=== PATIENT | male | born 1960 | race Caucasian/White ===

== ENCOUNTER 2016-12-18 12:29 | Observation (INO) | payer MEDICARE ==
[~2016-12-18] VITALS: Ht 177.8 cm; Wt 115.9 kg
--- NOTE | ~2016-12-18 | HEMODYNAMI ---
PATIENT:TYLOR VILLEGAS MEDICAL RECORD: [id number] : 60 LOCATION:[facility] D.[address] [facility] [id number] ADMISSION DATE: 12/18/16 Generatedon:12/19/201611:10 Patient name: TYLOR VILLEGAS Patient #: [id number] SSN: [id number] : 1960 Date of study: 12/19/2016 Page: Of Hemodynamic Procedure Report Patient Data Patient Demographics Procedure consent was obtained First Name: TYLOR Gender: Male Last Name: NELLY : 1960 Middle Initial: JOSSIE Age: 56 year(s) Patient #: [id number] Race: SSN: [id number] Additional ID: [id number] Contact details [address]: [address] [place] [address] State: [place] City: [place] Zip code: [address] Past Medical History Allergies Allergen Reaction Date Comments Reported Other allergy 01/28/2016 Prednisone, Sulfa Sulfa drugs 12/19/2016 Other allergy 12/19/2016 PRDNISONE Admission Admission Data Admission Date: 12/18/2016 Admission Time: 14:00 Arrival Date: 12/18/2016 Arrival Time: 14:00 Admit Source: Other Insurance Payor: Private Room #: D.[id number] health insurance Height (in.): 70 BSA: 2.31 (m2) Height (cm.): 177.8 BMI: 36.59 (kg/m2) Weight (lbs.): 255 Weight (kg.): 115.67 Lab Results Lab Result Date: 12/19/2016 Lab Result Time: 0:00 Biochemistry Name Units Result Min Max BUN mg/dl 13 --(--*-)-- 7 18 Creatinine mg/dl 1.2 --(---*)-- 0.6 1.3 CBC Name Units Result Min Max Hemoglobin g/dl 14.4 --(*---)-- 13.5 17.5 Procedure Procedure Types Cath Procedure Diagnostic Procedure [facility] w/Coronaries FFR/IVUS Intra-Coronary IVUS Initial PCI Procedure Coronary Stent Initial Procedure Description Procedure Date Procedure Date: 12/19/2016 Procedure Start Time: 10:45 Procedure End Time: 11:04 Procedure Staff Name Function Laureano Turner MD Performing Physician Vincent Gutierrez RT Scrub Hollie Costello RT Monitor Sofie Guzman RN Nurse Procedure Data Cath Procedure Fluoroscopy Diagnostic fluoroscopy Total fluoroscopy Time: 5.9 time: 5.9 min min Diagnostic fluoroscopy Total fluoroscopy dose: dose: 1069 mGy 1069 mGy Contrast Material Contrast Material Type Amount (ml) Isovue 370 83 Entry Location Entry Primary Successful Side Size Upsize Upsize Entry Closure Galan ccessful Closure Location (Fr) 1 (Fr) 2 (Fr) Remarks Device Remarks Radial Right 6 Fr Mechanical artery Short Compression Estimated blood loss: 5 ml Diagnostic catheters Device Type Used For End Catheter Placement Terumo Optitorque 5Fr Multi-vessel Conroe 4.5 catheter Angiography Procedure Complications No complications Procedure Medications Medication Administration Route Dosage Oxygen NC 2 l/min Heparin Flush Bag added to field 2 bags (1000units/500ml NS) Lidocaine 2% added to field 20 Radial Cocktail added to field 1 syringe (Verapomil 2mg/Nitro 400mcg/Heparin 1500units) Fentanyl I.V. 50 mcg Versed I.V. 1 mg Fentanyl I.V. 50 mcg Versed I.V. 1 mg Radial Cocktail I.A. 1 syringe (Verapomil 2mg/Nitro 400mcg/Heparin 1500units) Versed I.V. 0.5 mg Heparin Bolus I.V. 4000 units Versed I.V. 0.5 mg Plavix P.O. 75 mg Hemodynamics Rest BSA: 2.31 (m2) HGB: 14.4 (g/dl) O2 Consumption: Estimated: 287.88 (ml/min) O2 Co nsumption indexed: Estimated:124.62 (ml/min/m) Heart Rate: 87 (bpm) Pressure Samples Time Site Value (mmHg) Purpose Heart Use Rate(bpm) 10:48 LV 103/9,2 Snapshot 83 Snapshots Pre Cath Intra NCS Post Cath Vital Signs Time Heart Resp SPO2 NIBP (mmHg) Rhythm Pain Sedation Rate (ipm) (%) Status Level (bpm) 10:33:22 87 19 98 133/87(108) NSR 0 (11) 10(A) , No pain 10:37:38 78 16 96 138/78(99) NSR 0 (11) 10(A) , No pain 10:41:54 79 17 94 137/74(107) NSR 0 (11) 9(A) , No pain 10:46:08 73 21 94 124/75(92) NSR 0 (11) 9(A) , No pain 10:50:20 80 20 92 131/71(79) NSR 0 (11) 9(A) , No pain 10:54:29 82 16 92 122/66(87) NSR 0 (11) 9(A) , No pain 10:58:44 79 17 94 127/67(81) NSR 0 (11) 9(A) , No pain 11:03:00 80 17 95 114/67(89) NSR 0 (11) 9(A) , No pain Medications Time Medication Route Dose Verified Delivered Reason Note s Effectiveness by by 10:30:42 Oxygen NC 2 l/min Sofie Sofie used for Guzman Guzman sash assembler RN 10:30:49 Heparin Flush added 2 bags Sofie Sofie used for Bag to Guzman Guzman procedure (1000units/500ml field RN RN NS) 10:30:57 Lidocaine 2% added 20ml Sofie Sofie used for to vial Guzman Guzman procedure field RN RN 10:31:09 Radial Cocktail added 1 Sofie Sofie used for (Verapomil to syringe Guzman Guzman procedure 2mg/Nitro field RN RN 400mcg/Heparin 1500units) 10:40:01 Fentanyl I.V. 50 mcg Sofie Sofie for sedation Guzman Guzman RN RN 10:40:07 Versed I.V. 1 mg Sofie Sofie for sedation Guzman Guzman RN RN 10:42:30 Fentanyl I.V. 50 mcg Sofie Sofie for sedation Guzman Guzman RN RN 10:42:35 Versed I.V. 1 mg Sofie Sofie for sedation Guzman Guzman RN RN 10:47:42 Radial Cocktail I.A. 1 Sofie Laureano for (Verapomil syringe Guzman Yue FLORIAN vasodilation 2mg/Nitro RN 400mcg/Heparin 1500units) 10:47:50 Versed I.V. 0.5 mg Sofie Sofie for sedation Guzman Guzman RN RN 10:54:39 Heparin Bolus I.V. 4000 Sofie Sofie for units Megan Guzman anticoagulation RN RN 10:55:14 Versed I.V. 0.5 mg Sofie Sofie for sedation Megan Guzman RN RN 11:03:19 Plavix P.O. 75 mg Sofie Sofie for Guzman Megan antiplatelet RN RN therapy Procedure Log Time Note 9:50:26 Vincent Gutierrez RT(R) (CV) sent for patient. Start room use. 9:53:56 Informed consent obtained and on chart 9:54:03 Admit Source: Other 9:54:13 Arrival Date: 12/18/2016 2:00:00 PM 9:54:33 Insurance Payor : Private health insurance 9:59:24 Lab Result : BUN 13 mg/dl 9:59:24 Lab Result : Hemoglobin 14.4 g/dl 9:59:24 Lab Result : Creatinine 1.2 mg/dl 10:00:06 Diagnostic Cath Status : Elective 10:01:36 Time tracking: Regular hours 10:01:41 Plan of Care:Hemodynamics will remain stable., Cardiac rhythm will remain stable., Comfort level will be maintained., Respiratory function will remain adequate., Patient/ family verbilizes understanding of procedure., Procedure tolerated without complication., Recovers from procedure without complications.. 10:25:12 Patient received from PCU to CCL 2 Alert and oriented. Tansferred to table in Supine position. 10:25:15 Warm blankets applied, and maisha hugger turned on for patient comfort. 10:25:16 Correct patient and procedure confirmed by team. 10:26:04 H&P Date Dictated: 12/18/2016 Within 30 days and on chart., ER History on chart.. 10:26:08 Pre-procedure instructions explained to patient. 10:26:10 Pre-op teaching completed and patient verbalized understanding. 10:26:14 Family in patients room. 10:26:17 Patient NPO since Midnight. 10:26:33 Patient allergic to Sulfa drugs 10:26:55 Patient allergic to Other allergy PRDNISONE 10:27:35 Use device set Radial Dx 10:27:37 Acist Syringe opened to sterile field. 10:27:37 Medline Cath Pack opened to sterile field. 10:27:38 Bag Decanter opened to sterile field. 10:27:39 Terumo 6Fr Slender Glidesheath opened to sterile field. 10:27:40 St Braulio 260cm J .035 wire opened to sterile field. 10:27:40 Acist Hand Control opened to sterile field. 10:27:41 Acist Manifold opened to sterile field. 10:27:41 Tegaderm 4 x 4 opened to sterile field. 10:27:42 MBrace Wrist Support opened to sterile field. 10:30:42 Oxygen 2 l/min NC was administered by Sofie Guzman RN; used for procedure; 10:30:49 Heparin Flush Bag (1000units/500ml NS) 2 bags added to field was administered by Sofie Guzman RN; used for procedure; 10:30:57 Lidocaine 2% 20ml vial added to field was administered by Sofie Guzman RN; used for procedure; 10:31:09 Radial Cocktail (Verapomil 2mg/Nitro 400mcg/Heparin 1500units) 1 syringe added to field was administered by Sofie Guzman RN; used for procedure; 10:32:15 Vital chart was started 10:33:44 Baseline sample Acquired. 10:33:48 Rhythm: sinus rhythm 10:33:51 Is the patient allergic to Iodine/contrast media? No. 10:33:52 Was the patient premedicated? No 10:33:53 Is patient on blood thinner?Yes 10:33:55 ACC The patient was administered the following blood thiners within the last 24 hours: ACCPlavix 10:33:57 Patient diabetic? No. 10:34:01 Previous problem with sedation/anesthesia? No ? 10:34:02 Snore? Yes 10:34:03 Sleep apnea? Yes 10:35:37 Deviated septum? No 10:35:38 Opens mouth fully? Yes 10:35:38 Sticks out tongue? Yes 10:35:40 Airway obstruction? No ? 10:35:42 Dentures? No ? 10:35:45 Pre procedure: right dorsailis pedis pulse 1+ Palpable, but thready & weak; easily obliterated 10:35:48 Modified Roberto's test Radial < 7 seconds 10:35:50 Patient pain scale 0/10 ?. 10:35:59 IV patent on arrival in left antecubital with 0.9% NaCl at O. 10:36:02 Lab results completed and on chart. 10:36:09 Right Radial & Right Groin area was prepped with chlora-prep and draped in sterile fashion 10:36:10 Alarms reviewed by R. N. 10:36:10 Sharps counted by scrub and verified by R.N. 10:36:37 Physician arrived 10::38 --------ALL STOP TIME OUT------ 10:36:38 Final Timeout: patient, procedure, and site verified with staff and physician. All members of the team are in agreement. 10:36:44 Right Radial & Right Groin site verified by team. 10:36:46 Physical assessment completed. ASA score P 2 - A patient with mild systemic disease as per Laureano Turner MD. 10:36:50 Sedation plan: IV Moderate Sedation Versed, Fentanyl 10:40:01 Fentanyl 50 mcg I.V. was administered by Sofie Guzman RN; for sedation; 10:40:07 Versed 1 mg I.V. was administered by Sofie Guzman RN; for sedation; 10:42:30 Fentanyl 50 mcg I.V. was administered by Sofie Guzman RN; for sedation; 10:42:35 Versed 1 mg I.V. was administered by Sofie Guzman RN; for sedation; 10:45:06 Zero performed for pressure channel P1 10:45:16 Procedure started. 10:45:16 Full Disclosure recording started 10:45:19 Local anesthetic to right radial artery with Lidocaine 2% by Laureano Turner MD.INITIAL ACCESS ONLY 10:47:17 A 6 Fr Short sheath was inserted into the Right Radial artery 10:47:37 A [employer] ([place]) Optitorque 5Fr [place]roe 4.5 catheter was advanced over the wire and used for Multi-vessel Angiography. 10:47:42 Radial Cocktail (Verapomil 2mg/Nitro 400mcg/Heparin 1500units) 1 syringe I.A. was administered by Laureano Turner MD; for vasodilation; 10:47:50 Versed 0.5 mg I.V. was administered by Sofie Guzman RN; for sedation; 10:48:57 LV hemodynamics recorded. 10:48:58 LV gram done using HUGHES 10:49:01 Injector settings: Ml/sec: 5, Volume: 15, 10:49:06 EF : 55 % 10:49:09 RCA angiography performed. 10:49:12 Injector settings: Ml/sec: 3, Volume: 6, 10:50:38 Catheter removed. 10:50:57 Medtronic Launcher 6Fr EBU 3.5 guide catheter opened to sterile field. 10:51:10 6 Fr EBU 3.5 guide catheter was inserted over the wire 10:52:37 LCA angiography performed. 10:52:40 Injector settings: Ml/sec: 3, Volume: 6, 10:54:27 [employer] [place] Eagleye IVUS Catheter opened to sterile field. 10:54:27 [employer] BasixCompak Inflation Kit opened to sterile field. 10:54:28 Huntley Whisper J 300cm 0.014 guide wire opened to sterile field. 10:54:39 Heparin Bolus 4000 units I.V. was administered by Sofie Guzman RN; for anticoagulation; 10:54:44 WHISPER wire advanced. 10:55:12 Wire advanced across lesion. 10:55:13 IVUS catheter advanced over wire. 10:55:14 Versed 0.5 mg I.V. was administered by Sofie Guzman RN; for sedation; 10:58:38 IVUS pass to LAD lesion performed. 10:59:06 IVUS catheter removed over wire. 11:00:20 Inflation Number: 1 A Medtronic Integrity 3.5 X 18 stent was prepped and advanced across the Mid LAD. The stent was deployed at 17 WILD for 0:10 (min:sec). 11:00:47 Inflation number: 2 The stent balloon was then re-inflated across the Mid LAD to 13 WILD for 0:10 (min:sec). 11:01:03 Stent catheter was removed intact over wire. 11:01:05 Wire removed. 11:01:06 Guide catheter removed. 11:01:58 Terumo TR Band Large opened to sterile field. 11:02:11 Sheath removed intact; hemostasis achieved with Mechanical Compression to the Right Radial artery. 11:02:20 Procedure ended.(Physican Out) 11:02:51 Fluoroscopy time 05.90 minutes. 11::57 Fluoroscopy dose: 1069 mGy 11::57 Flurop Dose total: 1069 11:03:00 Contrast amount:Isovue 370 83ml. 11:03:02 Sharps counted by scrub and verified by R.N. 11:03:04 TR band inflated with 10cc of air. 11:03:06 Insertion/operative site no bleeding no hematoma. 11:03:10 Post right radial artery:stable 11:03:11 Post Procedure Pulses reassessed and unchanged 11:03:14 Post procedure rhythm: unchanged. 11:03:16 Estimated blood loss: 5 ml 11:03:17 Post procedure instruction explained to patient.Patient verbalizes understanding. 11:03:18 Patient needs reinforcement of post procedure teaching. 11:03:19 Plavix 75 mg P.O. was administered by Sofie Guzman RN; for antiplatelet therapy; 11:03:35 Procedure type changed to Cath procedure, Diagnostic procedure, LHC, LHC w/Coronaries, FFR/IVUS, Intra-Coronary IVUS Initial, PCI procedure, Coronary Stent Initial 11:03:36 Procedure and supply charges have been captured, reviewed, submitted and are correct. 11:03:41 Procedure Complication : No complications 11:04:25 Vital chart was stopped 11:04:26 See physician's report for complete and final results. 11:04:33 Report given to Med II. 11:04:35 Patient transfered to Med II with Stretcher. 11:04:46 Procedure ended. 11:04:46 Full Disclosure recording stopped 11:05:00 ACC-PCI Only Patient was given prescriptions, or instructed by Laureano Turner MD to start/continue the following medications upon discharge: Plavix 11:05:02 End room use (Document Last) 11:06:25 Patient Weight : 115.67 kg 11:06:39 Patient Height : 177.8 cm Intervention Summary Intervention Notes Time ActionType Lesion and Equipment Action# Pressure Duration Attributes Used 11:00:20 Place stent Mid LAD Medtronic 1 17 00:10 Integrity 3.5 X 18 stent 11:00:47 Reinflate Mid LAD Medtronic 2 13 00:10 stent Integrity balloon 3.5 X 18 stent Device Usage Item Name Manufacture Quantity Catalog Hospital Part Current Minimal Lot# / Number Charge Number Stock Stock Serial# Code Acist Acist 1 99136 423705 069338 799703 20 Feedback Inc Medline Cardinal 1 [id number] 887830 57646 345306 5 Cath Pack Health Bag Microtek 1 [facility] 148461 00851 534150 5 [employer] Terumo 6Fr Terumo 1 [id number] 852344 296974 032684 [address] Braul[address] St Braulio 1 099141 778920 599187 958650 30 260cm J .035 wire Acist Hand Acist 1 83548 679525 159101 426355 5 Control Medical Systems Inc Acist Acist 1 27558 138771 234239 885842 5 [facility] Inc Tegaderm 4 3M 1 1626W 128259 855857 379352 5 x 4 MBrace Advanced 1 140-0250-00 165766 76205 392691 5 Wrist Vascular Support Dynamics Terumo Terumo 1 40-7552 299138 818259 961336 5 Optitorque 5Fr [place] 4.5 catheter Medtronic Medtronic 1 [id number] 083177 87303 744348 3 Launcher 6Fr EBU 3.5 guide catheter Ash[place] Ashland 1 [id number] 511751 529931 558447 8 Gretna Eagleye IVUS Catheter Merit Merit 1 AD1795 825034 738161 341568 15 BasixCompak Medical Inflation Kit Huntley Huntley 1 [id number] 124662 358807 970309 5 Whisper J Vascular 300cm 0.014 guide wire Medtronic Medtronic 1 [id number] 999342 716425 8 [id number] Integrity 3.5 X 18 stent Terumo TR Terumo 1 [id number] 681346 825623 195447 40 Band Large Signature Audit [place] Stage Time Signature Unsigned Intra-Procedure 12/19/2016 Hollie Costello 11:10:11 AM RT(R) Signatures Monitor : Hollie Costello RT Signature : Date : Time : [facility] [address] [place] [address]
[~2016-12-18 12:29] MED LIST: ASPIRIN81 MG PO; BUSPAR10 MG PO; CYCLOBENZAPRINE10 MG PO; METOPROLOL TAR100 M1 PO; PEPCID20 MG PO; PLAVIX75 MG PO; PRILOSEC10 MG PO
[2016-12-18 13:17] LABS: BASOPHILS 0.8 % (0.0-2.0); EOSINOPHILS 2.3 % (0-7); HEMOGLOBIN 14.4 g/dL (13.5-17.5); IMMATURE GRANULOCYTES 1.1 % (0-5); LYMPHOCYTES 31.1 % (15-50); MCH 31.1 pg (26.0-34.0); MCHC 34.3 g/dL (31.0-37.0); MCV 90.7 fL (80.0-100.0); MEAN PLATELET VOLUME 10.3 fL (7.4-10.4); MONOCYTES 10.2 % (2-11); NEUTROPHILS 54.5 % (40-80); PLATELET COUNT 246 10x3/uL (130-400); RBC 4.63 10x6/uL (4.20-6.10); RDW 13.5 % (11.5-14.5); WBC 8.5 10x3/uL (4.8-10.8)
[2016-12-18 13:42] LABS: ALBUMIN 3.7 g/dL (3.4-5.0); ALKALINE PHOSPHATASE 100 U/L (46-116); ALT (SGPT) 18 U/L (10-68); CALC OSMOLALITY 282 mosm/kg (275-300); CALCIUM 8.5 mg/dL (8.5-10.1); CARBON DIOXIDE 26.7 mmol/L (21.0-32.0); CHLORIDE - SERUM 106 mmol/L (98-107); CREATININE - SERUM 1.2 mg/dL (0.6-1.3); GLUCOSE 100 mg/dL (74-106); POTASSIUM - SERUM 4.1 mmol/L (3.5-5.1); PROTEIN - SERUM 7.3 g/dL (6.4-8.2); SODIUM 142 mmol/L (136-145); UREA NITROGEN 13 mg/dL (7-18); eGFR NON AFRICAN AMERICAN 66 mL/min (90-120)
[2016-12-18 13:57] LABS: CHOL - HDL RATIO 4.2 ratio (2.3-4.9); CHOLESTEROL, TOTAL 168 mg/dL (0-200); CKMB 1.4 U/L (0.0-3.6); CREATINE KINASE 170 UL (21-232); HDL CHOLESTEROL 40 mg/dL (32-96); LDL CHOLESTEROL 102 mg/dL (0-100); LDL-HDL RATIO 2.6 ratio (1.5-3.5); TRIGLYCERIDE 134 mg/dL (30-200)
[2016-12-18 13:58] LABS: TROPONIN-I < 0.017 ng/mL (0.000-0.060)
--- NOTE | 2016-12-18 14:40 | NUR ---
RECEIVED PT FROM ER VIA W/C IN STABLE CONDITION DOES C/O CHEST PAIN 2/10 PRESSURE SALINE AKILA INTACT TO LT[facility] NO REDNESS OR EDEMA NOTED TELEMETRY SB RATE 58
[2016-12-18 15:06] VITALS: BP 140/72; Ht 177.8 cm; Wt 115.9 kg
--- NOTE | 2016-12-18 19:30 | NUR ---
RESUMED CARE OF PT, LYING IN BED RESPIRATIONS EVEN AND UNLABORED ON 2LPM VIA NC. 72 SR ON TELEMETRY. LEFT AC SALINE LOCKED. PLAN OF CARE DISCUSSED, CALL LIGHT IN REACH. WILL CONTINUE TO MONITOR. SEE NURSE ASSESSMENT.
[2016-12-18 21:33] VITALS: BP 141/88
[2016-12-19 01:06] VITALS: BP 107/61
--- NOTE | 2016-12-19 05:17 | NUR ---
PHYSICIAN INTERVENTIONAL CARDIOLOGIST AT BEDSIDE TO OBTAIN VITALS, CALL LIGHT IN REACH. WILL CONTINUE WITH PLAN OF CARE.
[2016-12-19 05:24] VITALS: BP 117/66
--- NOTE | 2016-12-19 07:30 | NUR ---
RECEIVED PT IN BED AAOX4 DENIES ANY NEEDS OR DISCOMFORT AT THIS TIME
--- NOTE | 2016-12-19 15:25 | NUR ---
PATIENT REQUESTED PLAVIX PRESCRIPTION BE CALLED TO [facility]. SPOKE WITH DENNY/PHARMACIST.
--- NOTE | 2016-12-19 16:00 | NUR ---
REVIEWED DISCHARGE INSTRUCTIONS WITH PT AND STATE UNDERSTANDING COPY GIVEN SALINE LOCK DCD TO LAC WITH 20 GA IV CATHETER INTACT PT DISCHARGED HOME LEFT UNIT VIA W/C IN STABLE CONDITION WITH BRACE TO RT WRIST ALL PERSONAL BELONGINGS WITH PT
--- NOTE | 2017-01-02 10:19 | HP ---
PATIENT: TYLOR VILLEGAS MEDICAL RECORD: [id number] ACCOUNT: [id number] LOCATION:D. D.2120 : 60 ADMISSION DATE: 12/18/16 HISTORY AND PHYSICAL EXAMINATION DATE: 12/18/2016 DIAGNOSES: 1. Angina, unstable. 2. Coronary artery disease. 3. Previous percutaneous transluminal coronary angioplasty stent, left anterior descending and right coronary artery. 4. Hypertension. HISTORY OF PRESENT ILLNESS: Mr. Villegas presents with increasing anginal symptomatology. He was scheduled for cardiac catheterization next week; however, his chest pain escalated in an unstable fashion and he presents to the Emergency Room. He has no acute changes on EKG, troponin is normal, but he continues to have the chest pain. PHYSICAL EXAMINATION: GENERAL APPEARANCE: Well-nourished, well-developed, appears stated age. Level of distress, comfortable. PSYCHIATRIC: Mental status, alert, normal affect. Orientation, oriented to time, place and person. EYES: Lids and conjunctiva, noninjected. No discharge, no pallor. ENT: Lips, teeth, gums, normal dentition. Oropharynx, no cyanosis, no pallor. NECK: Carotid arteries, bilateral normal upstroke, no bruits, no thrills. JUGULAR VEINS: No jugular venous pressure or distention. CERVICAL LYMPH NODES: Nontender, nonenlarged. THYROID: Not enlarged. Nontender. No nodules. LUNGS: Respiratory effort, unlabored. CHEST: Normal curvature. No thoracic deformity. No chest wall tenderness. Percussion, resonant. Auscultation, clear. No wheezes, no rales, no rhonchi. CARDIOVASCULAR: Precordial exam, nondisplaced. No heaves or pericardial thrills. Rate and rhythm, regular. Heart sounds, normal S1, normal S2. No S3, no gallop, no rub. Systolic murmur, not heard. Diastolic murmur, not heard. EXTREMITIES: No cyanosis, no edema. Peripheral pulses, full and equal in all extremities, except as noted. No bruits appreciated. ABDOMEN: Soft, nondistended. Normal aorta. No bruit. Nontender. No masses. Liver, nontender, no hepatomegaly. Spleen, nontender, no splenomegaly. MUSCULOSKELETAL: No joint tenderness. No joint swelling. No erythema. NEUROLOGICAL: Normal gait, normal strength, normal tone. SKIN: Warm and dry. REVIEW OF SYSTEMS: The patient reports easy bruising but reports no swollen glands. The patient reports no fever, no night sweats, no significant weight gain, no significant weight loss. No significant exercise tolerance. The patient reports no dry eyes, no irritation, no vision change. Patient reports no difficulty hearing and no ear pain. Patient reports no frequent nose bleeds or nose and sinus problems. Patient reports on arm pain on exertion. No shortness of breath while lying down. No history of heart murmur. Patient reports no cough, no wheezing or coughing up blood. Patient reports no abdominal pain, no vomiting. Normal appetite. No diarrhea and not vomiting blood. No nausea and no constipation. Patient reports no incontinence. No HISTORY AND PHYSICAL [id number] TYLOR VILLEGAS difficulty urinating. No hematuria. No increased frequency. Patient reports no muscle aches. No weakness, no arthralgias, no back pain. No swelling of the extremities. Patient reports no abnormal mole, no jaundice, no rashes. Reports no loss of consciousness. No weakness and no numbness. No seizures, dizziness, or headaches. The patient reports no depression, no sleep disturbance, feeling safe in a relationship and no alcohol abuse. Patient reports on fatigue. Reports no runny nose or sinus pressure. No itching, no hives, and no frequent sneezing. OVERALL IMPRESSION: Angina in an unstable fashion. We will proceed with coronary angiography. Further care depends upon findings of the angiography. TRANSINT:[id number] Voice Confirmation ID: [id number] DOCUMENT ID: [id number] WINNIE VAZ MD at 1019 CC: [id number] DICTATION DATE: 12/19/16 1107 BATTERY FILLER: 12/19/16 1143 DIS IN 12/19/16 [facility] [address] [place] [address]
--- NOTE | 2017-01-02 10:19 | OP ---
PATIENT NAME: TYLOR VILLEGAS MEDICAL RECORD: [id number] :60 LOCATION:D.M2 D.2120 ADMISSION DATE:12/18/16 SURGEON: WINNIE VAZ MD DATE OF OPERATION: 12/19/2016 PROCEDURES: 1. PTCA stent LAD. 2. Intravascular ultrasound of the LAD. 3. Left heart catheterization. 4. Selective coronary angiography. 5. Left ventriculogram. INDICATION: Angina and coronary artery disease. PROCEDURE: After informed consent was obtained and after detailed explanation of risks, benefits as well as alternative therapies, the patient elected to proceed with angiogram and angioplasty. The right radial area was prepped and draped in normal sterile fashion. The right radial artery was cannulated via modified Seldinger technique with placement of 6-Bhutanese sheath. All catheters exchanged through this sheath. FINDINGS: The left ventriculogram was performed in standard 30 degree HUGHES view reveals good cardiac wall motion throughout all segments. Overall ejection fraction estimated 60%. SELECTIVE CORONARY ANGIOGRAPHY: 1. Left main showed no significant angiographic disease. 2. Left anterior descending has 80% stenosis proximally confirmed by intravascular ultrasound. Previously placed stent is widely patent. 3. Left circumflex shows moderate irregularities, but no flow-limiting stenosis. 4. Right coronary has moderate irregularities, but no flow-limiting stenosis. Previously placed stent is widely patent. PTCA STENT OF THE LAD: The stent used is a 3.5 x 18 mm Integrity taken to 17 atmospheres. Result was 0% residual stenosis. OVERALL IMPRESSION: Successful percutaneous transluminal coronary angioplasty stent of the left anterior descending going from 80% initial stenosis to 0% residual. TRANSINT:[id number] Voice Confirmation ID: [id number] DOCUMENT ID: [id number] WINNIE VAZ MD at 1019 CC: [id number] DICTATION DATE: 12/19/16 1105 DISTRIBUTOR SALES MANAGER: 12/19/16 1241 DIS IN 12/19/16 [address] [place] [address]
--- NOTE | 2017-01-02 10:19 | DS ---
PATIENT:TYLOR VILLEGAS :60 MEDICAL RECORD: [id number] DISCHARGE SUMMARY ADMISSION DATE: 12/18/16 DISCHARGE DATE: 12/19/16 DISCHARGE DIAGNOSES: 1. Angina. 2. Coronary artery disease. 3. Percutaneous transluminal coronary angioplasty stent left anterior descending this admission. 4. Hypertension. HOSPITAL COURSE: This is a gentleman who presents with anginal symptomatology, found to have single vessel disease to the LAD, underwent successful PTCA stent of the LAD. He was discharged home with the addition of aspirin and Plavix to his medical regimen. We will follow up with [facility] in 1 month. TRANSINT:[id number] Voice Confirmation ID: [id number] DOCUMENT ID: [id number] WINNIE VAZ MD at 1019 CC: [id number] DICTATION DATE: 12/19/16 1106 FELT HAT FLANGING OPERATOR: 12/19/162031 DIS IN 12/19/16 [address] [place] [address]
== END 2016-12-19 16:00 | disposition home or self-care (01) ==
LOC: D.ER 12:29 → D.M2 14:00 → OBSVTIME 14:00 → D.M2 12-19 16:00
PROVIDERS: Family Medicine; ADMIT Internal Medicine Interventional Cardiology
DX: I25.110 Atherosclerotic heart disease of native coronary artery with unstable angina pectoris (principal); Z95.5 Presence of coronary angioplasty implant and graft; I10 Essential (primary) hypertension

== ENCOUNTER 2016-12-23 13:42 | Emergency (ER) | payer MEDICARE ==
[2016-12-18 15:06] VITALS: BMI 36.6
[2016-12-23 14:19] LABS: BASOPHILS 0.6 % (0.0-2.0); EOSINOPHILS 2.3 % (0-7); HEMOGLOBIN 14.1 g/dL (13.5-17.5); IMMATURE GRANULOCYTES 1.2 % (0-5); LYMPHOCYTES 22.9 % (15-50); MCHC 34.4 g/dL (31.0-37.0); MCV 90.1 fL (80.0-100.0); MEAN PLATELET VOLUME 10.3 fL (7.4-10.4); MONOCYTES 10.5 % (2-11); NEUTROPHILS 62.5 % (40-80); PLATELET COUNT 244 10x3/uL (130-400); RBC 4.55 10x6/uL (4.20-6.10); RDW 13.4 % (11.5-14.5); WBC 8.4 10x3/uL (4.8-10.8)
[2016-12-23 14:34] LABS: ALBUMIN 3.4 g/dL (3.4-5.0); ALKALINE PHOSPHATASE 92 U/L (46-116); ALT (SGPT) 17 U/L (10-68); BILIRUBIN - TOTAL 0.32 mg/dL (0.2-1.3); CALC OSMOLALITY 281 mosm/kg (275-300); CALCIUM 8.5 mg/dL (8.5-10.1); CARBON DIOXIDE 28.3 mmol/L (21.0-32.0); CHLORIDE - SERUM 105 mmol/L (98-107); CREATININE - SERUM 1.1 mg/dL (0.6-1.3); GLUCOSE 108 mg/dL (74-106); POTASSIUM - SERUM 3.9 mmol/L (3.5-5.1); PROTEIN - SERUM 7.3 g/dL (6.4-8.2); SODIUM 141 mmol/L (136-145); UREA NITROGEN 13 mg/dL (7-18); eGFR NON AFRICAN AMERICAN 73 mL/min (90-120)
[2016-12-23 14:45] LABS: CHOL - HDL RATIO 4.3 ratio (2.3-4.9); CHOLESTEROL, TOTAL 154 mg/dL (0-200); CKMB 1.3 U/L (0.0-3.6); CREATINE KINASE 126 UL (21-232); HDL CHOLESTEROL 36 mg/dL (32-96); LDL CHOLESTEROL 95 mg/dL (0-100); LDL-HDL RATIO 2.6 ratio (1.5-3.5); TRIGLYCERIDE 118 mg/dL (30-200); TROPONIN-I 0.037 ng/mL (0.000-0.060)
== END 2016-12-23 17:45 | disposition home or self-care (01) ==
LOC: D.ER 13:42
PROVIDERS: Emergency Medicine
DX: R07.9 Chest pain, unspecified (principal); I10 Essential (primary) hypertension; I25.10 Atherosclerotic heart disease of native coronary artery without angina pectoris; R14.2 Eructation

== ENCOUNTER 2017-04-29 13:16 | Observation (INO) | payer MEDICARE ==
[~2017-04-29] VITALS: Ht 177.8 cm; Wt 118.2 kg
[~2017-04-29 13:16] MED LIST changes: +BUSPAR 15 MG TA15 MG PO; -BUSPAR10 MG PO
[2017-04-29 14:27] LABS: BASOPHILS 0.5 % (0-2); EOSINOPHILS 2.1 % (0-7); HEMOGLOBIN 13.9 g/dL (13.5-17.5); IMMATURE GRANULOCYTES 1.3 % (0-5); LYMPHOCYTES 32.1 % (15-50); MCH 31.1 pg (26.0-34.0); MCHC 33.9 g/dL (31.0-37.0); MCV 91.7 fL (80.0-100.0); MEAN PLATELET VOLUME 10.2 fL (7.4-10.4); MONOCYTES 11.5 % (2-11); NEUTROPHILS 52.5 % (40-80); PLATELET COUNT 261 10x3/uL (130-400); RBC 4.47 10x6/uL (4.20-6.10); RDW 13.2 % (11.5-14.5); WBC 8.3 10x3/uL (4.8-10.8)
[2017-04-29 14:34] LABS: ALBUMIN 3.4 g/dL (3.4-5.0); ALKALINE PHOSPHATASE 97 U/L (46-116); ALT (SGPT) 21 U/L (10-68); BILIRUBIN - TOTAL 0.42 mg/dL (0.2-1.3); CALC OSMOLALITY 283 mosm/kg (275-300); CALCIUM 8.4 mg/dL (8.5-10.1); CARBON DIOXIDE 27.2 mmol/L (21.0-32.0); CHLORIDE - SERUM 106 mmol/L (98-107); CREATININE - SERUM 1.1 mg/dL (0.6-1.3); GLUCOSE 107 mg/dL (74-106); POTASSIUM - SERUM 3.8 mmol/L (3.5-5.1); PROTEIN - SERUM 7.6 g/dL (6.4-8.2); SODIUM 142 mmol/L (136-145); UREA NITROGEN 16 mg/dL (7-18); eGFR NON AFRICAN AMERICAN 73 mL/min (90-120)
[2017-04-29 14:45] LABS: CHOL - HDL RATIO 4.6 ratio (2.3-4.9); CHOLESTEROL, TOTAL 179 mg/dL (0-200); CKMB 1.2 U/L (0.0-3.6); CREATINE KINASE 340 UL (21-232); HDL CHOLESTEROL 39 mg/dL (32-96); LDL CHOLESTEROL 109 mg/dL (0-100); LDL-HDL RATIO 2.8 ratio (1.5-3.5); TRIGLYCERIDE 158 mg/dL (30-200)
[2017-04-29 14:53] LABS: TROPONIN-I < 0.017 ng/mL (0.000-0.060)
--- NOTE | 2017-04-29 17:25 | NUR ---
TRANSFER FROM ER BY W/C. PANCHITOINTED TO ROOM. CALL LIGHT IN REACH. WILL CONT. PLAN OF CARE.
[2017-04-29] MEDS ORDERED: OMEPRAZOLE40 MG PO (17:28)
[2017-04-29 17:34] VITALS: BP 129/65; Ht 177.8 cm; Wt 118.2 kg
[2017-04-29 20:00] VITALS: BP 145/75
--- NOTE | 2017-04-29 20:15 | NUR ---
RESUMED CARE OF PT, LYING IN BED RESPIRATIONS EVEN AND UNLABORED ON ROOM AIR. 65 SR ON TELEMETRY. LEFT AC SALINE LOCKED. CALL LIGHT IN REACH. WILL CONTINUE TO MONITOR. SEE NURSE ASSESSMENT.
[2017-04-30 01:25] VITALS: BP 116/725
--- NOTE | 2017-04-30 03:59 | NUR ---
BLOOD SPLATTER ANALYST AT BEDSIDE TO OBTAIN VITALS, CALL LIGHT IN REACH. WILL CONTINUE WITH PLAN OF CARE.
[2017-04-30 04:12] VITALS: BP 123/64
[2017-04-30 09:24] VITALS: BP 136/67
--- NOTE | 2017-04-30 09:39 | NUR ---
TELEMETRY SB. AT BS. CALL LIGHT IN REACH. WILL CONT. PLAN OF CARE.
[2017-04-30] MEDS ORDERED: ISOSORBIDE MONO30 M1 PO (12:44)
[2017-04-30 12:50] VITALS: BP 110/68
--- NOTE | 2017-04-30 13:15 | NUR ---
IV AND TELEMETRY DCD. DC PLANS GIVEN. UNDERSTANDING VOICED. ESCORTED TO CAR BY W/C.
== END 2017-04-30 13:16 | disposition home or self-care (01) ==
LOC: D.OPS 13:16 → D.M2 13:16 → D.ER 13:16 → D.M2 16:21 → OBSVTIME 16:21 → EDSTATUS 17:01 → D.OPS 17:02 → D.SDCHOLD 17:02 → D.MS 17:18 → D.SDCHOLD 17:18 → D.MS 17:20 → D.M2 17:20 → EDSTATUS 22:19 → D.M2 04-30 13:16 → D.OPS 04-30 13:16 → D.M2 04-30 13:16 → EDSTATUS 05-01 22:20
PROVIDERS: Emergency Medicine; ADMIT Internal Medicine Interventional Cardiology
DX: R07.9 Chest pain, unspecified (principal); R00.2 Palpitations; I10 Essential (primary) hypertension; K21.9 Gastro-esophageal reflux disease without esophagitis; I25.10 Atherosclerotic heart disease of native coronary artery without angina pectoris; Z95.5 Presence of coronary angioplasty implant and graft; F32.9 Major depressive disorder, single episode, unspecified

== ENCOUNTER 2017-05-10 19:03 | Emergency (ER) | payer MEDICARE ==
[2017-04-29 17:34] VITALS: BMI 37.3
[~2017-05-10 19:03] MED LIST changes: +ISOSORBIDE MONO30 M1 PO; +OMEPRAZOLE40 MG PO
[2017-05-10 19:28] LABS: BASOPHILS 0.5 % (0-2); HEMATOCRIT 40.3 % (42.0-54.0); HEMOGLOBIN 13.7 g/dL (13.5-17.5); IMMATURE GRANULOCYTES 0.8 % (0-5); LYMPHOCYTES 22.9 % (15-50); MCH 30.8 pg (26.0-34.0); MCV 90.6 fL (80.0-100.0); MEAN PLATELET VOLUME 9.8 fL (7.4-10.4); MONOCYTES 8.6 % (2-11); NEUTROPHILS 65.2 % (40-80); PLATELET COUNT 245 10x3/uL (130-400); RBC 4.45 10x6/uL (4.20-6.10); RDW 12.7 % (11.5-14.5); WBC 9.6 10x3/uL (4.8-10.8)
[2017-05-10 19:55] LABS: ALBUMIN 3.2 g/dL (3.4-5.0); ALKALINE PHOSPHATASE 109 U/L (46-116); ALT (SGPT) 18 U/L (10-68); BILIRUBIN - TOTAL 0.26 mg/dL (0.2-1.3); CALC OSMOLALITY 262 mosm/kg (275-300); CALCIUM 8.1 mg/dL (8.5-10.1); CARBON DIOXIDE 25.1 mmol/L (21.0-32.0); CHLORIDE - SERUM 98 mmol/L (98-107); CREATININE - SERUM 1.3 mg/dL (0.6-1.3); GLUCOSE 146 mg/dL (74-106); POTASSIUM - SERUM 3.6 mmol/L (3.5-5.1); PROTEIN - SERUM 7.1 g/dL (6.4-8.2); SODIUM 129 mmol/L (136-145); UREA NITROGEN 14 mg/dL (7-18); eGFR NON AFRICAN AMERICAN 61 mL/min (90-120)
[2017-05-10 20:06] LABS: CHOL - HDL RATIO 4.6 ratio (2.3-4.9); CHOLESTEROL, TOTAL 152 mg/dL (0-200); CKMB 0.5 U/L (0.0-3.6); CREATINE KINASE 142 UL (21-232); HDL CHOLESTEROL 33 mg/dL (32-96); LDL CHOLESTEROL 94 mg/dL (0-100); LDL-HDL RATIO 2.8 ratio (1.5-3.5); TRIGLYCERIDE 126 mg/dL (30-200); TROPONIN-I < 0.017 ng/mL (0.000-0.060)
== END 2017-05-10 23:59 | disposition home or self-care (01) ==
LOC: D.ER 19:03
PROVIDERS: Emergency Medicine
DX: R07.9 Chest pain, unspecified (principal); R55 Syncope and collapse; I25.10 Atherosclerotic heart disease of native coronary artery without angina pectoris; K58.9 Irritable bowel syndrome, unspecified; G47.30 Sleep apnea, unspecified